=== PATIENT | male | born 1950 | race Caucasian/White ===

== ENCOUNTER → 2022-08-20 08:07 | Outpatient (CLI) | payer MEDICARE, SELFPAY ==
--- NOTE | 2022-08-20 | DI.US.S_ITS ---
PROCEDURE: US ABD AORTA ANEURYSM SCREEN INDICATIONS: Abdominal aortic aneurysm screening TECHNIQUE: Real time scanning was performed of the aorta and iliac arteries, with image documentation. COMPARISON: None. FINDINGS: Aorta: Proximal aortic diameter measures 2.1 cm. Mid-aorta measures 1.8 cm. Distal aortic diameter is 1.7 cm. Iliac arteries: Right common iliac artery measures 1 cm. Left common iliac artery measures 0.9 cm. IMPRESSION: Negative for aneurysm. Dictated by: Dat King M.D. on 08/20/2022 at 10:03 Approved by: Dat King M.D. on 08/20/2022 at 10:04
== END ==
PROVIDERS: PCP Internal Medicine; Referring Provider Internal Medicine; Visit Provider Internal Medicine
DX: Z13.6 Encounter for screening for cardiovascular disorders (principal)
CPT/HCPCS: 76706